=== PATIENT | female | born 1945 | race Caucasian/White ===

== ENCOUNTER → 2019-07-30 | Outpatient (CLI) | payer OTHER ==
[~2019-07-30] VITALS: Ht 154.9 cm; Wt 58.1 kg
[~2019-07-30] MED LIST: ACTIQ400 MCG PO; ADULT LOW DOSE81 MG PO; ADVIL LIQUI-GE200 MG; ALLERGY25 M2 PO; AMLACTIN400 GM; AMOXICILLIN 50500 M1 PO; APAP500 PO; ASPIRIN81 M2 PO; ATENOLOL 50MG T50 M1 PO; BACLOFEN 10MG T10 MG PO; BACTRIM DS TAB1 EACH; BACTRIM DS TAB1 EACH PO; BENADRYL25 MG; BENADRYL25 MG PO; CENTRUM COMPLE1 EACH PO; CENTRUM TABLET1 TAB OR; CIPROFLOXACIN500 M1 PO; CIPROFLOXACIN500 M3 PO; COLACE100 MG OR; CRESTOR10 MG PO; DARVOCET-N 1001 EACH PO; DURAGESIC1 EAC2 TD; FENTANYL PA12 MCG/H1 TD; FENTANYL PA25 MCG/HR TRANSDERM; FLEXERIL PO; FLONASE 0.05%50 MCG NARES; GLYCOLAX POWDER17 G1 PO; HEALTHYLAX17 GM PO; IBUPROFEN 200200 M1 PO; IMODIUM; IMODIUM MULTI-1 EACH PO; LEVAQUIN 500 M500 M1 PO; LOPERAMIDE 2 MG2 M1 PO; LYRICA 50 MG50 MG; LYRICA100 MG; MIRALAX255 GM; MOBIC15 MG PO; MULTI-VITAMIN1 EAC2 PO; MULTIPLE VITAM1 EAC3 PO; MULTIVITAMINS; MULTIVITAMINS PO; MULTIVITAMINS1 EAC7; NORCO 5-325 TA1 EACH PO; PRAVACHOL40 MG; PRAVACHOL40 MG PO; PRAVACHOL80 MG PO; PRILOSEC 20 MG20 MG PO; PRILOSEC40 MG PO; PROAIR HFA8.5 GM INH; PROPECIA1 MG PO; PROTONIX 20 MG20 M1 PO; RELAFEN500 MG PO; STOOL SOFTENER1 EAC2 PO; TAPAZOLE5 MG PO; TIZANIDINE HCL 22 M1 PO; TOPROL XL50 MG PO; TYLENOL EX-STR500 M2 PO; TYLENOL EXTRA500 MG PO; VALIUM2 MG PO; VALIUM5 MG PO; VITAMIN D-32000 UNIT PO; VITAMIN D400 UNI1 PO; ZYRTEC10 MG PO
--- NOTE | ~2019-07-30 | HPC ---
[facility] [address] [address] PAIN MANAGEMENT CONSULTATION Name: ANA MARIA MISTRY Room #: [facility].#: [id number] Admission: 07/30/19 Attend Phys: Nahum Mercado MD Discharge: Date of : 49 Report #: [id number] THIS REPORT FOR: //name// CC: Ronnie Mercado DATE OF SERVICE: 07/30/2019 CHIEF COMPLAINT: Chronic low back pain with mild radicular symptoms in the left leg. Chronic use of opioid medications for the treatment of intractable pain. The patient was in the pain clinic today for an extended consultation visit. Our visit today was exclusively consult of consultation. She had a number of questions regarding opioid therapy and medication management of intractable pain. She has been a longstanding patient of Dr. Ronnie Alonso. She has also been seen previously in our pain clinic by Dr. Lukas Burch who is no longer with us. Her last injection treatment here was in [address] Burch has provided a variety of treatments for her dating back to 2008. It has been over 3 years since she was last here. Since a period of time when she was almost completely debilitated, no longer driving a car and in a wheelchair, she has by her own efforts and with excellent physical therapy, which has been ongoing, become much more active. She is now independent, walks without assistance or assist device and drove herself to the appointment today. She looks great. Her weight is well controlled. She is well groomed and seems well toned. Her affect is pleasant and positive throughout her visit today. She has some questions about fentanyl patches, which she has been using now since around 2010. The 25 mcg patches are placed every 72 hours. She notices improvement in the medication effect in the first 6 or 8 hours and then it leveled out. Her pain like all chronic patients is not the same day in and day out. She does not have a breakthrough medication for bad days. Since she is on a baseline level of opioid at all times, there is no fluctuation in her pain medication. She has considered tapering her medication and discussed this with Dr. Alonso. She has continued to use alcohol periodically and we discussed the risks of this. She also continues to smoke a pack of cigarettes a day and was counseled regarding the importance of stopping this serious habit, which can also contribute dramatically to her chronic pain. Currently, she is using her medicines carefully as we would recommend in our clinic. She has 1 prescriber, Dr. Alonso. She fills at one pharmacy. The [facility] on [address] I have reviewed her information on the prescription drug [address] [address] PAIN MANAGEMENT CONSULTATION Name: ANA MARIA MISTRY Room #: REG [facility] Daniella#: [id number] Admission: 07/30/19 Attend Phys: Nahum Mercado MD Discharge: Date of : 49 Report #: [id number] monitoring program and there are no unexpected events or prescriptions. She denies any significant side effects. She understands the importance of carefully safeguarding her medications. She feels that it contributes to her improvement in pain and to her improvement in function. She does debunk the rumor that it was the initiation of the medication that improved her activities. She was on fentanyl for nearly 3 years before she began physical therapy regimen that ultimately resulted in her rejuvenation. She was concerned somewhat about the long-term consequences of opioid medication. RECOMMENDATIONS: We discussed the difference between side effects and toxicity and I used the illustration of a nonsteroidal anti-inflammatory drug to renal and GI toxicity in comparison with the less toxic opioids. Opioids are not without their own risks. The addiction risk is now well established throughout the [place] with the opioid crisis and there are many side effects including constipation and cognitive side effects. She denies any interference of her day-to-day activities with either of the significant side effects. I have given her the opinion that she can continue on fentanyl patches indefinitely based upon her lack of toxicity. We discussed tapering to the lowest effective dose. Since she is doing so much better with her physical therapy and exercise, she may well be able to reduce her dose to 12 mcg. She can do this with Dr. Alonso's direction. We have also discussed reducing the baseline and considering the use of a small amount of a breakthrough medication. I have explained my belief that breakthrough medication should be taken primarily if not exclusively to improve function. In other words, she should take medication in advance of doing activities that might be hindered by pain. Hydrocodone or low dose oxycodone could be used for this purpose. I do not believe she needs to be seen routinely by a pain physician since Dr. Alonso is keeping close monitoring on her fentanyl patches. I would make no additional recommendations. At this time, I do not believe that she needs injections. We did review x-rays of her spine. She has quite remarkable lateral translation and lumbar spondylosis with convexity and curvature. It is a testament to her physical therapy that she has been able to overcome this impressive scoliotic and translational change throughout the lumbar spine. I would not recommend surgery, nor injections at this time. I believe I answered all of her questions. A total of 30-40 minutes were spent [facility] [address] [place] [address] PAIN MANAGEMENT CONSULTATION Name: ANA MARIA MISTRY Room #: [facility]#: [id number] Admission: 07/30/19 Attend Phys: Nahum Mercado MD Discharge: Date of : 49 Report #: [id number] with the patient. She was discharged without followup scheduled unless things change. By: [id number] Nahum Mercado MD /nt
[2019-07-30 12:46] VITALS: BP 160/72
--- NOTE | 2019-07-30 12:48 | NUR ---
Pain Clinic Assessment: 1. History of Osteoarthritis: NONE History of Rheumatoid Arthritis: NONE 2. Height: 5 ft. 1 in. 154.9 cm. Weight: 128.0 lb. oz. 58.060 kg. Patient's BMI: 24.2 3. Vital Signs: BP: 160/72 Pulse: 63 Resp: 16 Temp: 02 Sat: 96 ECG Mon: 4. Pain Intensity: 5 5. Fall Risk: Dizziness: N Needs help standing or walking: N Fallen in the last 3 months: N Fall risk comments: 6. Patient on Blood Thinner: None 7. History of Hypertension: Y 8. Opioid Therapy greater than 6 weeks: Opiate Contract Signed: 9. Risk Assessment Tool Provided: LOW 10. Functional Assessment Tool: 11. Recreational Drug Use: Never Drug Type: Tobacco Use: Current Every Day Smoker Tobacco Type: Cigarettes Amount or Packs/day: 1 PACK How Many Years: Alcohol Use: Yes Frequency: Weekly Quant: 2-3 DRINKS
== END ==
LOC: PAIN 06-27 12:37
DX: M54.5 Low back pain (principal); G89.29 Other chronic pain; Z79.891 Long term (current) use of opiate analgesic

== ENCOUNTER → 2019-11-16 | Outpatient (CLI) | payer OTHER | LOC: CAT 15:35 | DX: K80.20 Calculus of gallbladder without cholecystitis without obstruction (principal); K38.8 Other specified diseases of appendix; I70.0 Atherosclerosis of aorta; M47.816 Spondylosis without myelopathy or radiculopathy, lumbar region; M41.86 Other forms of scoliosis, lumbar region ==